=== PATIENT | female | born 1985 | race American Indian/Alaskan Native ===

== ENCOUNTER 2017-07-05 13:40 | Emergency (ER) | payer SELFPAY ==
--- NOTE | 2017-07-05 14:44 | Emergency Department Report ---
Blank Doc - Documentation Documentation: 31-year-old female with left breast tenderness, had a ring in her nipple, which started to drain 2 days ago, purulent material. She took the ring and drainage stopped. But her left breast continued to swell, became tender, so she came to ED for further treatment.
[2017-07-05] MEDS ORDERED: MORPHINE IV ONE (15:16)
[2017-07-05] MEDS ORDERED: ZOFRAN IV ONE (15:17)
[2017-07-05] MEDS ORDERED: NACL 0.9% 1000 ML 1,000 ML IV ONE (15:17)
[2017-07-05] MEDS ORDERED: VANCOMYCIN VIAL IV ONE (15:20)
[2017-07-05 15:52] LABS: Hematocrit 39.8 % (30.3-42.9); Hemoglobin 13.2 gm/dl (10.1-14.3); Mean Corpuscular HGB Conc 33 % (30-34); Mean Corpuscular Hemoglobin 32 pg (28-32); Mean Corpuscular Volume 95 fl (79-97); Platelet Count 283 K/mm3 (140-440); Red Blood Count 4.17 M/mm3 (3.65-5.03); Red Cell Distribution Width 12.4 % (13.2-15.2)
[2017-07-05] MEDS ORDERED: XYLOCAINE 1%/ EPI 1:100,000 INFILTRATI ONE (15:55)
[2017-07-05 15:57] LABS: Bacteria,Urine 3+ /HPF (Negative); Bilirubin,Urine NEG (Negative); Blood,Urine NEG (Negative); Color,Urine Yellow (Yellow); Mucus,Urine 1+ /HPF; Protein,Urine <15 mg/dL mg/dL (Negative)
--- NOTE | 2017-07-05 15:57 | Emergency Department Report ---
- General Chief complaint: Skin/Abscess/Foreign Body Stated complaint: INFECTION TO BREAST Time Seen by Provider: 07/05/17 15:07 Source: patient Mode of arrival: Ambulatory Limitations: No Limitations - History of Present Illness MD complaint: other (abscess) -: Gradual, days(s) (6) Tetanus Up to Date: yes Location: chest (Left breast) Severity: severe Severity scale (0 -10): 8 Quality: aching, sharp Consistency: constant Improves with: other (Warm therapy) Worsens with: none Context: other (Nipple piercing) Associated symptoms: fever, chills Treatments Prior to Arrival: none - Related Data Previous Rx's Medication Instructions Recorded Last Taken Type Ibuprofen [Motrin] 400 mg PO Q8H PRN #20 tablet 07/05/17 Unknown Rx Sulfamethoxazole/Trimethoprim 1 each PO BID 10 Days #20 tablet 07/05/17 Unknown Rx [Bactrim DS TAB] Allergies Allergy/AdvReac Type Severity Reaction Status Date / Time No Known Allergies Allergy Unverified 07/05/17 13:53 Abscess Boil HPI - HPI Chief Complaint: Skin/Abscess/Foreign Body Stated Complaint: INFECTION TO BREAST Time Seen by Provider: 07/05/17 15:07 Duration: 6 Days Location: Other (Left Breast) History: Yes Fever, Yes Pain, Yes Purulent Drainage, No Numbness, No Foreign Body, No Previous History, No Insect Bite Home Medications: Previous Rx's Medication Instructions Recorded Last Taken Type Ibuprofen [Motrin] 400 mg PO Q8H PRN #20 tablet 07/05/17 Unknown Rx Sulfamethoxazole/Trimethoprim 1 each PO BID 10 Days #20 tablet 07/05/17 Unknown Rx [Bactrim DS TAB] Allergies/Adverse Reactions: Allergies Allergy/AdvReac Type Severity Reaction Status Date / Time No Known Allergies Allergy Unverified 07/05/17 13:53 ED Review of Systems ROS: Stated complaint: INFECTION TO BREAST Other details as noted in HPI Comment: All other systems reviewed and negative Constitutional: chills, fever Eyes: denies: vision change ENT: denies: ear pain Respiratory: no symptoms reported Cardiovascular: denies: chest pain Endocrine: no symptoms reported Gastrointestinal: denies: abdominal pain, nausea, vomiting, diarrhea, constipation Genitourinary: denies: urgency, dysuria, frequency, hematuria Skin: change in color, other (Left breast discharge and redness,) Neurological: denies: headache, weakness, numbness Psychiatric: denies: suicidal thoughts Hematological/Lymphatic: denies: easy bleeding, easy bruising ED Past Medical Hx - Past Medical History Previous Medical History?: No - Surgical History Past Surgical History?: No - Social History Smoking Status: Current Every Day Smoker Substance Use Type: None - Medications Home Medications: Home Medications Medication Instructions Recorded Confirmed Last Taken Type Ibuprofen [Motrin] 400 mg PO Q8H PRN #20 tablet 07/05/17 Unknown Rx Sulfamethoxazole/Trimethoprim 1 each PO BID 10 Days #20 tablet 07/05/17 Unknown Rx [Bactrim DS TAB] ED Physical Exam - General Limitations: No Limitations General appearance: alert, in no apparent distress - Head Head exam: Present: atraumatic, normocephalic, normal inspection - Eye Eye exam: Present: normal appearance, PERRL, EOMI Pupils: Present: normal accommodation - ENT ENT exam: Present: normal exam, normal orophraynx, mucous membranes moist - Neck Neck exam: Present: normal inspection, full ROM. Absent: tenderness - Respiratory Respiratory exam: Present: normal lung sounds bilaterally. Absent: respiratory distress, wheezes, rhonchi - Cardiovascular Cardiovascular Exam: Present: normal rhythm, normal heart sounds - GI/Abdominal GI/Abdominal exam: Present: soft, normal bowel sounds. Absent: tenderness, guarding - Extremities Exam Extremities exam: Present: normal inspection, full ROM, normal capillary refill. Absent: tenderness - Back Exam Back exam: Present: normal inspection, full ROM. Absent: tenderness - Neurological Exam Neurological exam: Present: alert, oriented X3, CN II-XII intact. Absent: motor sensory deficit - Psychiatric Psychiatric exam: Present: normal affect - Skin Skin exam: Present: warm, dry, erythema (Left breast is swollen and tender to palpation with surrounding erythema around the left nipple.), other ([place] was Ms. Nadine Waters RN.) ED Course Vital Signs 07/05/17 13:49 Temperature 98.3 F Pulse Rate 100 H Respiratory 16 Rate Blood Pressure 99/58 O2 Sat by Pulse 100 Oximetry - Reevaluation(s) Reevaluation #1: 07/05/17 16:05 The General surgeon on-call Dr Javad Stein was consulted. He came to the emergency room and evaluated the patient and he performed incision and drainage of the left breast abscess at the patients bedside. He does not want ultrasound to be done. He wants patient to be discharged home on antibiotics and patient to follow-up in his clinic in 2 days. 07/05/17 16:[address] Stein surgical note for the details of the incision and drainage of the left breast. Reevaluation #2: 07/05/17 16:27 Patient prescription was written by Dr. Stein the general surgeon who did the I&D. ED Medical Decision Making - Lab Data Result diagrams: 07/05/17 15:28 07/05/17 15:28 - Medical Decision Making Left Breast Abscess. Critical care attestation.: If time is entered above; I have spent that time in minutes in the direct care of this critically ill patient, excluding procedure time. ED Disposition Clinical Impression: Left breast abscess, Encounter for incision and drainage procedure Disposition: DC-01 TO HOME OR SELFCARE Is pt being admited?: No Does the pt Need Aspirin: No Condition: Stable Instructions: Breast Abscess Drainage (ED) Additional Instructions: Please follow up with the general surgeon Dr. Stein in the next 2 days (on Thursday) in his outpatient clinic by calling his office. Dr Stein office phone number is [phone]. Please return to the emergency room if her condition worsen. Prescriptions: Ibuprofen [Motrin] 400 mg PO Q8H PRN #20 tablet PRN Reason: Pain Sulfamethoxazole/Trimethoprim [Bactrim DS TAB] 1 each PO BID 10 Days #20 tablet Referrals: PRIMARY CARE, [Primary Care Provider] - 3-5 Days
[2017-07-05 15:58] LABS: HCG Qualitative,Urine Negative (Negative)
[2017-07-05] MEDS ORDERED: XYLOCAINE 1% 20 mL ONE (15:59)
[2017-07-05] MEDS ORDERED: VANCOMYCIN PHARMACY TO DOSE IV SCH (16:00)
[2017-07-05] MEDS ORDERED: VANCOMYCIN VIAL 750 MG in NACL 0.9% 250ML 250 ML IV ONE (16:00)
[2017-07-05 16:01] LABS: INR 0.94 (0.87-1.13)
[2017-07-05 16:02] LABS: Partial Thromboplastin Time 32.4 Sec. (24.2-36.6)
[2017-07-05 16:23] LABS: Alanine Aminotransferase 9 units/L (7-56); Albumin 4.2 g/dL (3.9-5); BUN/Creatinine Ratio 15; Blood Urea Nitrogen 9 mg/dL (7-17); Calcium 9.5 mg/dL (8.4-10.2); Hemolysis Index 15
[2017-07-05] MEDS ORDERED: CLEOCIN IM ONE (16:34)
[2017-07-05] MEDS ORDERED: PERCOCET 5/325 PO ONE (16:42)
[2017-07-05] MEDS ORDERED: ZOFRAN ODT PO ONE (16:42)
[2017-07-05] MEDS ORDERED: TENIVAC IM ONE (17:00)
[2017-07-05 17:34] LABS: Basophils % (Manual) 0 % (0.0-1.8); Eosinophils % (Manual) 0.5 % (0.0-4.3); Monocytes % (Manual) 7.5 % (0.0-7.3); Total Cells Counted 200
[2017-07-05 17:35] LABS: Anisocytosis 1+; Platelet Estimate Consistent w Auto
[2017-07-05 17:57] VITALS: BP 103/52
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
== END 2017-07-05 17:40 | disposition home or self-care (01) ==
LOC: ED 13:40
DX: N61.1 Abscess of the breast and nipple (principal); F17.200 Nicotine dependence, unspecified, uncomplicated
CPT/HCPCS: 36415; 80053; 81001; 81025; 82140; 85007; 85025; 85610; 85730; 87040; 87116; 90471; 90714; 96372; 99283; J3370; J7050; Q0162